=== PATIENT | female | born 1995 | race Caucasian/White ===

== ENCOUNTER 2017-08-01 15:05 | Emergency (ER) | payer OTHER ==
[2017-08-01 15:57] LABS: KETONE, URINE AUTO RFX NEGATIVE (NEGATIVE); LEUKOCYTE ESTERASE UR AUTO RFX TRACE (NEGATIVE); MUCUS, URINE RFX SMALL (NEGATIVE); NITRITE, URINE AUTO RFX NEGATIVE (NEGATIVE); RBC, URINE AUTO RFX 2 /HPF (0-3); SPECIFIC GRAVITY UR AUTO RFX 1.021 (1.002-1.035); SQUAM EPITHELIAL CELL UR AURFX 2 /HPF (0-6); WBC, URINE AUTO RFX 4 /HPF (0-3)
[2017-08-01 16:16] LABS: BASO % 0.3 % (0.0-1.0); EOS # 0.2 10^3/uL (0.0-0.50); EOS % 2.1 % (0.0-3.0); HEMATOCRIT 37.4 % (36.0-47.0); HEMOGLOBIN 13.5 g/dl (12.0-15.5); IMMATURE GRANULOCYTE % 0.3 % (0-3.0); LYMPH # 2.3 10^3/uL (1.5-6.5); LYMPH % 21.5 % (24.0-44.0); MEAN CORPUSCULAR HEMOGLOBIN 32.8 pg (27.0-33.0); MEAN CORPUSCULAR HGB CONC 36.1 g/dl (32.0-36.5); MEAN CORPUSCULAR VOLUME 90.8 fl (80.0-96.0); MONO # 0.7 10^3/uL (0.0-0.8); MONO % 6.5 % (0.0-5.0); NEUTROPHILS # 7.4 10^3/uL (1.8-7.7); NEUTROPHILS % 69.3 % (36.0-66.0); PLATELET COUNT, AUTOMATED 178 10^3/uL (150-450); RED BLOOD COUNT 4.12 10^6/uL (4.00-5.40); RED CELL DISTRIBUTION WIDTH 11.6 % (11.5-14.5); WHITE BLOOD COUNT 10.7 10^3/uL (4.0-10.0)
[2017-08-01 16:48] LABS: HCG, SERUM QUANTITATIVE 66269 MIU/ML
[2017-08-01 17:40] LABS: CHLAMYDIA DNA AMPLIFICATION NEGATIVE (NEGATIVE); GC DNA AMPLIFICATION NEGATIVE (NEGATIVE)
== END 2017-08-01 17:13 | disposition home or self-care (01) ==
LOC: M ED 15:05
DX: O20.0 Threatened abortion (principal); Z3A.10 10 weeks gestation of pregnancy
CPT/HCPCS: 76801

== ENCOUNTER 2017-08-28 15:31 | Emergency (ER) | payer OTHER ==
[2017-08-28] MEDS: NS 1,000 ML IV (16:45)
[2017-08-28 17:10] LABS: KETONE, URINE AUTO RFX NEGATIVE (NEGATIVE); LEUKOCYTE ESTERASE UR AUTO RFX NEGATIVE (NEGATIVE); NITRITE, URINE AUTO RFX NEGATIVE (NEGATIVE); RBC, URINE AUTO RFX 2 /HPF (0-3); SPECIFIC GRAVITY UR AUTO RFX 1.003 (1.002-1.035); SQUAM EPITHELIAL CELL UR AURFX 2 /HPF (0-6); WBC, URINE AUTO RFX 2 /HPF (0-3)
[2017-08-28 17:11] LABS: BASO % 0.2 % (0.0-1.0); EOS # 0.1 10^3/uL (0.0-0.50); EOS % 1.1 % (0.0-3.0); HEMATOCRIT 33.4 % (36.0-47.0); IMMATURE GRANULOCYTE % 0.4 % (0-3.0); LYMPH % 19.2 % (24.0-44.0); MEAN CORPUSCULAR HEMOGLOBIN 32.7 pg (27.0-33.0); MEAN CORPUSCULAR HGB CONC 35.9 g/dl (32.0-36.5); MONO # 0.6 10^3/uL (0.0-0.8); MONO % 5.5 % (0.0-5.0); NEUTROPHILS # 7.7 10^3/uL (1.8-7.7); NEUTROPHILS % 73.6 % (36.0-66.0); PLATELET COUNT, AUTOMATED 157 10^3/uL (150-450); RED BLOOD COUNT 3.67 10^6/uL (4.00-5.40); RED CELL DISTRIBUTION WIDTH 12.4 % (11.5-14.5); WHITE BLOOD COUNT 10.4 10^3/uL (4.0-10.0)
[2017-08-28] MEDS: METOCLOPRAMIDE INJ 10MG/2ML VIAL (J2765) IV (17:13)
[2017-08-28] MEDS: diphenhydrAMINE INJ 50MG/ML VIAL (J1200) IV (17:13)
[2017-08-28 17:21] LABS: INR 0.98; PROTHROMBIN TIME 13.1 SECONDS (12.4-14.5)
[2017-08-28 17:22] LABS: PARTIAL THROMBOPLASTIN TIME 26.3 SECONDS (26.8-37.9)
[2017-08-28 17:48] LABS: ALBUMIN 2.8 GM/DL (3.2-5.2); ALBUMIN/GLOBULIN RATIO 0.82 (1.00-1.93); ALKALINE PHOSPHATASE 38 U/L (45-117); ALT/SGPT 15 U/L (12-78); ANION GAP 6 MEQ/L (8-16); AST/SGOT 10 U/L (7-37); BILIRUBIN,DIRECT < 0.1 MG/DL (0.0-0.2); BILIRUBIN,TOTAL 0.2 MG/DL (0.2-1.0); BLOOD UREA NITROGEN 7 MG/DL (7-18); CALCIUM LEVEL 8.2 MG/DL (8.5-10.1); CARBON DIOXIDE LEVEL 27 MEQ/L (21-32); CHLORIDE LEVEL 107 MEQ/L (98-107); CREATININE FOR GFR 0.59 MG/DL (0.55-1.30); FREE T4 0.96 NG/DL (0.76-1.46); GLOMERULAR FILTRATION RATE > 60.0 (>60); GLUCOSE, FASTING 87 MG/DL (70-100); HCG, SERUM QUANTITATIVE 29527 MIU/ML; MAGNESIUM LEVEL 1.7 MG/DL (1.8-2.4); POTASSIUM SERUM 3.6 MEQ/L (3.5-5.1); SODIUM LEVEL 140 MEQ/L (136-145); THYROID STIMULATING HORMONE 0.946 uIU/ML (0.358-3.740); TOTAL PROTEIN 6.2 GM/DL (6.4-8.2); URIC ACID 3.2 MG/DL (2.6-6.0)
== END 2017-08-28 18:33 | disposition home or self-care (01) ==
LOC: M ED 15:31
DX: O99.89 Other specified diseases and conditions complicating pregnancy, childbirth and the puerperium (principal); R51 Headache; O23.42 Unspecified infection of urinary tract in pregnancy, second trimester; Z3A.14 14 weeks gestation of pregnancy; Z82.0 Family history of epilepsy and other diseases of the nervous system
CPT/HCPCS: J1200

== ENCOUNTER 2017-12-12 18:34 | Outpatient (CLI) | payer OTHER | END 2017-12-12 20:45 | disposition home or self-care (01) | LOC: M LDO 18:34 | DX: O9A.513 Psychological abuse complicating pregnancy, third trimester (principal); Z3A.30 30 weeks gestation of pregnancy | CPT/HCPCS: G0463 ==

== ENCOUNTER 2018-01-31 18:07 | Outpatient (CLI) | payer OTHER | END 2018-01-31 19:20 | disposition home or self-care (01) | LOC: M LDO 18:07 | DX: O36.8130 Decreased fetal movements, third trimester, not applicable or unspecified (principal); Z3A.36 36 weeks gestation of pregnancy | CPT/HCPCS: 59025 ==

== ENCOUNTER 2018-02-19 13:31 | Outpatient (CLI) | payer OTHER ==
[2018-02-19] MEDS: PHENAZOPYRIDINE 100 MG TAB PO ×2 (14:47→20:59)
[2018-02-19] MEDS ORDERED: cefTRIAXone SOD 1 GM VIAL (J0696) IM (15:00)
[2018-02-19 15:46] LABS: HEMATOCRIT 35.8 % (36.0-47.0); HEMOGLOBIN 12.4 g/dl (12.0-15.5); MEAN CORPUSCULAR HEMOGLOBIN 32.6 pg (27.0-33.0); MEAN CORPUSCULAR HGB CONC 34.6 g/dl (32.0-36.5); MEAN CORPUSCULAR VOLUME 94.2 fl (80.0-96.0); PLATELET COUNT, AUTOMATED 160 10^3/uL (150-450); RED CELL DISTRIBUTION WIDTH 12.6 % (11.5-14.5); WHITE BLOOD COUNT 10.8 10^3/uL (4.0-10.0)
[2018-02-19] MEDS: cefTRIAXone SOD 1 GM in D5W MINI-BAG PLUS 50 ML IV (16:47)
[2018-02-19] MEDS ORDERED: ACETAMINOPHEN 500 MG TAB PO (17:30)
[2018-02-19] MEDS: ONDANSETRON 4MG/2ML VIAL (J2405) IV (17:57)
[2018-02-20] MEDS: ONDANSETRON 4MG/2ML VIAL (J2405) IV ×2 (01:25→10:00)
[2018-02-20] MEDS: PHENAZOPYRIDINE 100 MG TAB PO ×2 (09:02→16:37)
[2018-02-20] MEDS: FAMOTIDINE 20 MG TAB PO (09:56)
[2018-02-20] MEDS ORDERED: raNITIdine SYRUP 150 MG/10 ML UDC PO (10:00)
[2018-02-20] MEDS ORDERED: cefTRIAXone SOD 1 GM VIAL (J0696) IV (16:30)
[2018-02-20] MEDS ORDERED: cefTRIAXone SOD 1 GM VIAL (J0696) IM (16:30)
[2018-02-20] MEDS: cefTRIAXone SOD 1 GM in D5W MINI-BAG PLUS 50 ML IV (16:37)
== END 2018-02-20 17:25 | disposition home or self-care (01) ==
LOC: M LDO 13:31
DX: O23.43 Unspecified infection of urinary tract in pregnancy, third trimester (principal); Z3A.38 38 weeks gestation of pregnancy; Z87.440 Personal history of urinary (tract) infections
CPT/HCPCS: J2405

== ENCOUNTER 2018-03-03 06:46 | Inpatient (IN) | payer OTHER ==
[2018-03-03] MEDS ORDERED: LR 1,000 ML IV (07:52)
[2018-03-03] MEDS: LACTATED RINGER'S 1000 ML IV (08:23)
[2018-03-03] MEDS: miSOPROStol 50 MCG 1/2 TAB (S0191) PO ×2 (08:34→12:38)
[2018-03-03 08:36] LABS: HEMATOCRIT 35.3 % (36.0-47.0); HEMOGLOBIN 12.5 g/dl (12.0-15.5); MEAN CORPUSCULAR HEMOGLOBIN 33.3 pg (27.0-33.0); MEAN CORPUSCULAR HGB CONC 35.4 g/dl (32.0-36.5); MEAN CORPUSCULAR VOLUME 94.1 fl (80.0-96.0); PLATELET COUNT, AUTOMATED 157 10^3/uL (150-450); RED BLOOD COUNT 3.75 10^6/uL (4.00-5.40); RED CELL DISTRIBUTION WIDTH 12.9 % (11.5-14.5); WHITE BLOOD COUNT 10.5 10^3/uL (4.0-10.0)
[2018-03-03] MEDS ORDERED: OXYTOCIN 30 UNITS IN 0.9% NaCl 500ML IV BAG (J2590) As Ordered (17:02)
[2018-03-03] MEDS: OXYTOCIN DRIP 30 UNITS in APPROPRIATE DILUENT 1 EA IV ×2 (17:20→23:01)
[2018-03-03] MEDS ORDERED: FENTANYL/ROPIVACAINE/NACL BAG 100 ML EPIDURAL (17:30)
[2018-03-03] MEDS ORDERED: ONDANSETRON 4MG/2ML VIAL (J2405) IV (18:15)
[2018-03-03] MEDS ORDERED: LACTATED RINGER'S 1000 ML IV (18:15)
[2018-03-03] MEDS ORDERED: EPIDURAL/PCA KEYS XX (18:15)
[2018-03-03] MEDS ORDERED: REFRIGERATOR IV KEYS XX (18:15)
[2018-03-03] MEDS ORDERED: diphenhydrAMINE INJ 50MG/ML VIAL (J1200) IV (18:15)
[2018-03-03] MEDS ORDERED: EPIDURAL COMMENT XX (18:15)
[2018-03-03] MEDS ORDERED: NALOXONE INJ 0.4 MG/1 ML VIAL (J2310) IV (18:15)
[2018-03-03] MEDS ORDERED: ePHEDrine SULFATE 25 MG/5 ML(5MG/ML) SYRINGE IV (18:15)
[2018-03-03] MEDS: FENTANYL/ROPIVACAINE/NACL BAG 100 ML EPIDURAL (18:15)
[2018-03-03] MEDS: LR 1,000 ML IV ×2 (18:45→19:37)
[2018-03-03] MEDS ORDERED: METOCLOPRAMIDE INJ 10MG/2ML VIAL (J2765) IV (23:15)
[2018-03-04] MEDS: ACETAMINOPHEN TAB 650MG DOSE (2X325MG) PO ×3 (05:47→19:48)
[2018-03-04] MEDS: DIBUCAINE 1% OINTMENT 30GM TOP (05:47)
[2018-03-04] MEDS: PRENATAL VITAMINS CHEWABLE TABLET PO (10:30)
[2018-03-04] MEDS: DOCUSATE SODIUM 100 MG CAP PO ×2 (10:31→19:48)
[2018-03-04] MEDS: IBUPROFEN 800 MG TAB PO ×2 (13:44→22:31)
[2018-03-04] MEDS: RHOGAM 300 MCG (1500 IU) INJ (J2790) IM (16:14)
[2018-03-04] MEDS: MEASLES,MUMPS,RUBELLA VACCINE INJ (MMR-II) (90707) SC (16:14)
[2018-03-05] MEDS: ACETAMINOPHEN TAB 650MG DOSE (2X325MG) PO (05:41)
[2018-03-05] MEDS: DOCUSATE SODIUM 100 MG CAP PO (07:56)
[2018-03-05] MEDS: PRENATAL VITAMINS CHEWABLE TABLET PO (07:56)
[2018-03-05] MEDS: IBUPROFEN 800 MG TAB PO (07:56)
== END 2018-03-05 11:40 | disposition home or self-care (01) | DRG 807 ==
LOC: M LDI 06:46 → M OBS 03-04 01:08
PROVIDERS: Obstetrics & Gynecology
PROC: 10E0XZZ Delivery of Products of Conception, External Approach (ICD-10-PCS; principal; 2018-03-03)
PROC: 0HQ9XZZ Repair Perineum Skin, External Approach (ICD-10-PCS; 2018-03-03)
PROC: 3E033VJ Introduction of Other Hormone into Peripheral Vein, Percutaneous Approach (ICD-10-PCS; 2018-03-03)
DX: O48.0 Post-term pregnancy (principal); Z37.0 Single live birth; Z3A.40 40 weeks gestation of pregnancy; O70.0 First degree perineal laceration during delivery